=== PATIENT | female | born 1985 | race Caucasian/White ===

== ENCOUNTER 2017-03-28 01:40 | Inpatient (IN) | payer BC ==
[~2017-03-28] VITALS: Ht 157.5 cm; Wt 83.0 kg
[2017-03-28 03:18] VITALS: Ht 157.5 cm; Wt 83.0 kg
[2017-03-28 03:19] VITALS: BP 127/79; PULSE 65; RESP 20
[2017-03-28] MEDS ORDERED: IBUPROFEN 600 MG TAB PO PRN (03:30)
[2017-03-28] MEDS ORDERED: HYDROCODONE/APAP (5/325) TAB PO PRN ×2 (03:30→14:30)
[2017-03-28] MEDS ORDERED: CARBOPROST 250 MCG INJ IM PRN ×2 (03:30→14:30)
[2017-03-28] MEDS ORDERED: LIDOCAINE 1% (MPF) 30 ML INJ INJ PRN (03:30)
[2017-03-28] MEDS ORDERED: MISOPROSTOL 200 MCG TAB PR PRN ×2 (03:30→14:30)
[2017-03-28] MEDS ORDERED: BUTORPHANOL 2 MG INJ IV PRN ×2 (03:30)
[2017-03-28] MEDS ORDERED: OXYTOCIN 30 UNITS/LR 500 ML IV SCH ×3 (03:30)
[2017-03-28] MEDS ORDERED: OXYTOCIN 30 UNITS/LR 500 ML IV PRN ×2 (03:30→14:30)
[2017-03-28] MEDS ORDERED: METHYLERGONOVINE 0.2 MG INJ IM PRN ×2 (03:30→14:30)
[2017-03-28] MEDS: LACTATED RINGER'S 1,000 ML IV SCH ×3 (03:32→07:14)
--- NOTE | 2017-03-28 03:42 | HP ---
Date/Time of Note Date/Time of Note DATE: 03/28/17 TIME: 03:36 OB - History Hx of Present Free Text/Dictation 31 Year-old with SIUP at 38 6/7 wks presents with a chief complaint of ucs. She has been receiving her care with Dr. Wharton. She states good movement. She denies nausea, vomiting, shortness of breath, chest pain, and abdominal pain between contractions, headache, visual changes, vaginal bleeding or LOF. Chief Complaint: ucs Estimated Due Date: Apr 05, 2017 : 2 Para: 0 Spontaneous : 1 Therapeutic : 0 Care: Good Care Ultrasounds: Normal mid trimester US Medical Complications: None Past Family/Social History * Past Medical, Surgical, Family and Obstetric Histories reviewed from chart. Blood Type: O+ Rubella: immune RPR/VDRL: Negative GBS Status: Negative HBsAG: Negative OB Admission Exam Vital Signs Vital Signs Vital Signs Date Time Temp Pulse Resp B/P Pulse Ox O2 Delivery O2 Flow Rate FiO2 03/28/17 03:19 97.8 65 20 127/79 Room Air Physical Exam HEENT: WNL Heart: Rhythm Normal Lungs: Clear Abdomen: WNL Extremities: Normal Cervical Dilatation: 2cm Effacement: 50% Station: -3 Membranes: Ruptured Amniotic Fluid: Clear Heart Rate: 140's Accelerations: Accelerations Present Decelerations: No Decelerations Varibility: Moderate Contractions on Admission: < 5 Minutes Apart Date/Time Contractions Began: 1999 on 03/27/17 Intensity: Moderate OB Assessment/Plan Other plan: 31 Year-old with SIUP at 38 6/7 wks with SROM. She initially presents with ucs, however she had SROM during triage observation - FHR: No sign of metabolic acidosis- Category I - Continuous EFM, toco - CBC, blood type and screen - Analgesia options with R/B/A discussed in detail with patient - Epidural per patient request - Please see the orders 2) O+/Rubella: Immune/GBS negative Admission, procedures, expectations, risks and possible complications have been discussed in detail with the patient. Risk of vaginal delivery including but not limited to bleeding, infection, cervical laceration, placental retention, injury to fetus, blood transfusion, blood transfusion related infection, risk of anesthesia, adhesion, cervical laceration, episiotomy/laceration, possible delivery with risk of bleeding, infection, injury to other organs ( bowel, bladder, ureter, vessels, nerves), injury to fetus, blood transfusion, blood transfusion related infection, risk of anesthesia, scar and hernia formation, needs for future , removal of uterus or any other indicated surgery discussed with the patient. She expressed understanding and repeats the risks. All of her questions were answered; all appropriate consents will be signed. PHYSICIAN'S VERIFICATION OF INFORMED CONSENT: Vaginal delivery, possible forceps, vacuum and delivery The patient was counseled regarding the procedure, its indications, risks, potential complications and alternatives and any questions were answered. Consent was obtained. PLANNED PROCEDURE/TREATMENT: Vaginal delivery with possible vacuum/forceps delivery episiotomy, repair of laceration possible delivery PHYSICIAN'S VERIFICATION OF INFORMED CONSENT FOR BLOOD TRANSFUSION. There is a reasonable possibility that blood transfusion will be necessary as a result of the patient's procedure. I have discussed the following with the patient/patient's legal home furnishings sales representative: An explanation of the benefits and risks of the transfusion of blood or blood products and the possible alternatives. Al questions have been answered to the patient's/patients legal representatives satisfaction. INFORMED CONSENT: The patient has been informed of: - The nature of the proposed care, treatment, services, medications, interventions or procedures. - Potential benefits, risks or side effects, including potential problems related to recuperation. - The likelihood of achieving care treatment and service goals. - Reasonable alternatives to the proposed care, treatment and service. - The relevant risks, benefits and side effects related to alternatives, including the possible results of not receiving care, treatment and services. - When indicated, any limitations on the confidentiality of information learned from or about the patient. - If appropriate, the risks, benefits and alternatives of the drugs to be used for sedation/analgesia including moderate sedation. - If appropriate, patient has been provided information on the risks, benefits and alternatives to the transfusion of blood and/or blood products. ESTRELLA DE PAZ Mar 28, 2017 03:42
[2017-03-28 03:55] LABS: INR 0.86; PARTIAL THROMBOPLASTIN TIME 22.5 Sec (25.0-35.0); PROTIME 11.8 Sec (11.9-14.9); PT RATIO 0.9
[2017-03-28 04:09] LABS: BASOPHILS % 0.3 % (0.0-2.0); EOSINOPHILS % 0.3 % (0.0-7.0); HEMATOCRIT 39.9 % (37.0-47.0); HEMOGLOBIN 14.9 g/dl (12.0-16.0); LYMPHOCYTES # 1.7 10^3/ul (0.8-2.9); LYMPHOCYTES % 13.3 % (15.0-51.0); MEAN CORPUSCULAR HGB CONC 37.3 g/dl (32.0-37.0); MEAN CORPUSCULAR VOLUME 85.8 fl (82.0-101.0); MEAN PLATELET VOLUME 12.7 fl (7.4-10.4); MONOCYTE # 0.8 10^3/ul (0.3-0.9); MONOCYTES % 6.1 % (0.0-11.0); NEUTROPHIL # 10.4 10^3/ul (1.6-7.5); NEUTROPHILS % 79.6 % (39.0-77.0); PLATELET COUNT 172 10^3/UL (140-415); RED BLOOD COUNT 4.65 10^6/ul (4.20-5.40); RED CELL DISTRIBUTION WIDTH 13.7 % (11.5-14.5)
--- NOTE | 2017-03-28 04:13 | RADRPT ---
PROCEDURE: Obstetrical ultrasound, limited. CLINICAL INDICATION: Pelvic pain. TECHNIQUE: Multiple sonographic images of the pelvis were obtained using transabdominal technique . Images were obtained with lopez scale and color Doppler. The images were reviewed on a PACS works tation. COMPARISON: No prior studies are available for comparison. FINDINGS: There is a single living intrauterine gestation with the fetus in a vertex presentation. hear t tones are identified. The placenta is anterior in location, grade 2. IMPRESSION: Single viable intrauterine gestation. Cephalic presentation. .Jr Maldonado MD, Date Time Electronically viewed and signed by .Jr Maldonado MD, MD on 03/28/2017 04:12 .T/
[2017-03-28] MEDS ORDERED: FENTAnyl 2MCG/ML-ROPIV 0.2% 100 ML ONE (04:31)
[2017-03-28] MEDS ORDERED: DEXTROSE 5%-LR 1,000 ML IV SCH (08:30)
--- NOTE | 2017-03-28 11:25 | LDN ---
Date/Time of Note Date/Time of Note DATE: 03/28/17 TIME: 11:22 Delivery Summary Weeks of Gestation 38 weeks and 6 days Placenta Delivered: Spontaneously Meconium: none Episiotomy: No Perineal laceration: 1 Laceration repair: Second degree laceration repaired with 3-0 Vicryl and 3-0 chromic Anesthesia type: Epidural Estimated blood loss: 300 Sponge & Needle done & correct: Yes All needle counts correct: Yes Any foreign bodies felt in the: No Problems: Infant Delivery Information Sex Infant Sex: female Apgars 1 Minute: 9 5 Minute: 9 Suctioning Nose & mouth suctioned at anna: Yes Delee suction performed: Yes Umbilical Cord Umbilical cord with: 3 Vessels Cord presentations: nuchal cord Nuchal cord present X: 1 Cord Blood was obtained: Yes Mother & Baby Disposition Disposition Mom & Baby to Maternity; Good: Yes STACEY RAYA MD Mar 28, 2017 11:25
[2017-03-28 12:40] VITALS: BP 130/75; PULSE 71; RESP 18
[2017-03-28] MEDS ORDERED: BENZOCAINE 20% 56 ML SPRAY TOP PRN (14:30)
[2017-03-28] MEDS ORDERED: DIBUCAINE 1% 30 GM OINT PR PRN (14:30)
[2017-03-28] MEDS ORDERED: ACETAMINOPHEN 325 MG TAB PO PRN (14:30)
[2017-03-28] MEDS ORDERED: WITCH HAZEL/GLYCERIN PAD PR PRN (14:30)
[2017-03-28] MEDS: LACTATED RINGER'S 1,000 ML IV* SCH ×2 (15:40→22:23)
[2017-03-28 16:10] VITALS: BP 126/79; PULSE 73; RESP 19
[2017-03-28] MEDS: IBUPROFEN 600 MG TAB PO SCH (18:28)
[2017-03-28 19:55] VITALS: BP 131/82; PULSE 69; RESP 19
[2017-03-28] MEDS: SENNA/DOCUSATE NA (8.6MG/50MG) TAB PO SCH (21:46)
[2017-03-29] VITALS: BP 129/79; PULSE 72; RESP 19
[2017-03-29 04:10] VITALS: BP 103/69; PULSE 67; RESP 18
[2017-03-29] MEDS: IBUPROFEN 600 MG TAB PO SCH ×5 (05:41→23:30)
[2017-03-29] MEDS: LACTATED RINGER'S 1,000 ML IV* SCH (06:23)
[2017-03-29 07:55] VITALS: BP 125/78; PULSE 66; RESP 17
[2017-03-29] MEDS: SENNA/DOCUSATE NA (8.6MG/50MG) TAB PO SCH ×2 (09:00→20:39)
--- NOTE | 2017-03-29 10:25 | QN ---
Documentation Comment Post normal vaginal delivery day 1 Afebrile vital signs are stable , Abdomen soft, uterus firm, lochia normal, extremities normal WISAM AYERS MD Mar 29, 2017 10:25
[2017-03-29 10:48] LABS: BASOPHILS % 0.2 % (0.0-2.0); EOSINOPHILS # 0.1 10^3/ul (0.0-0.5); EOSINOPHILS % 0.4 % (0.0-7.0); HEMATOCRIT 34.3 % (37.0-47.0); HEMOGLOBIN 12.3 g/dl (12.0-16.0); LYMPHOCYTES # 1.6 10^3/ul (0.8-2.9); MEAN CORPUSCULAR HEMOGLOBIN 31.1 pg (29.0-33.0); MEAN CORPUSCULAR HGB CONC 35.9 g/dl (32.0-37.0); MEAN CORPUSCULAR VOLUME 86.8 fl (82.0-101.0); MEAN PLATELET VOLUME 12.7 fl (7.4-10.4); MONOCYTE # 0.6 10^3/ul (0.3-0.9); MONOCYTES % 4.8 % (0.0-11.0); NEUTROPHIL # 10.6 10^3/ul (1.6-7.5); NEUTROPHILS % 82.1 % (39.0-77.0); PLATELET COUNT 139 10^3/UL (140-415); RED BLOOD COUNT 3.95 10^6/ul (4.20-5.40); RED CELL DISTRIBUTION WIDTH 13.9 % (11.5-14.5); WHITE BLOOD COUNT 12.9 10^3/ul (4.8-10.8)
[2017-03-29 15:45] VITALS: BP 130/73; PULSE 67; RESP 16
[2017-03-29 19:55] VITALS: BP 128/71; PULSE 68; RESP 19
[2017-03-30 03:40] VITALS: BP 110/62; PULSE 69; RESP 19
[2017-03-30] MEDS: IBUPROFEN 600 MG TAB PO SCH ×3 (05:37→17:42)
[2017-03-30 08:15] VITALS: BP 135/85; PULSE 67; RESP 18
[2017-03-30] MEDS: SENNA/DOCUSATE NA (8.6MG/50MG) TAB PO SCH (08:52)
[2017-03-30] MEDS ORDERED: INFLUENZA VIRUS VACCINE 0.5 ML (DISPENSING) IM* ONE (09:00)
[2017-03-30] MEDS ORDERED: DIPHTH/TET/ACEL PERTUSS (ADULT) 0.5 ML VIAL IM* ONE (09:00)
--- NOTE | 2017-03-30 12:15 | PD.PPDC ---
PHOTOGRAPHER ASSISTANT Discharge Instruction Condition Patient Condition: Good Diet Diet: Resume Regular Diet Activity/Restrictions Activity: Normal Activity May Shower Restrictions: No Exercising No Lifting No Driving No Sexual Activity Nothing in the Vagina No Mary Esther No Tampons, douche Follow-up Follow-up with Physician: 2, Week/Weeks Provider Information: instruction given recommended to make appointment to be seen at the clinic in 2 weeks Return to clinic for [facility]FFER Instructions: Fever greater than 101 Chills Worsening abdominal pain Excessive Vaginal Bleeding More than 2 pads per hour Unable to tolerate diet OB Instructions: Breast Tenderness Depression Blurried Vision Headache WISAM AYERS MD Mar 30, 2017 12:15
--- NOTE | 2017-03-30 12:18 | DS ---
Date/Time of Note Date/Time of Note DATE: 03/30/17 TIME: 12:16 Discharge Summary Admission/Discharge Info Admit Date/Time Mar 28, 2017 at 03:00 Discharge Date/Time March 30, 2017 at 1210 Discharge Diagnosis Post normal vaginal delivery day 2 Patient Condition: Good Procedures Normal vaginal delivery Hx of Present Illness Term admitted for delivery Hospital Course Satisfactory uneventful Follow-up Plan instructions given recommended to make appointment to be seen at the clinic in 2 weeks Primary Care Provider Care Physician No Primary Time spent on discharge: < 30 minutes WISAM AYERS MD Mar 30, 2017 12:18
[2017-03-30 16:00] VITALS: BP 125/78; PULSE 65; RESP 18
[2017-03-31] MEDS ORDERED: INFLUENZA VIRUS VACCINE 0.5 ML (DISPENSING) IM* ONE (09:00)
== END 2017-03-30 18:45 | disposition home or self-care (01) | DRG 775 ==
LOC: L-D 01:40 → OBT 01:40 → L-D 03:00 → OBT 03:00 → PP1 12:30
PROVIDERS: ADMIT Obstetrics & Gynecology; ATTEND Obstetrics & Gynecology
PROC: 10E0XZZ Delivery of Products of Conception, External Approach (ICD-10-PCS; principal; 2017-03-28)
PROC: 0KQM0ZZ Repair Perineum Muscle, Open Approach (ICD-10-PCS; 2017-03-28)
PROC: 3E0234Z Introduction of Serum, Toxoid and Vaccine into Muscle, Percutaneous Approach (ICD-10-PCS; 2017-03-30)
DX: O70.1 Second degree perineal laceration during delivery (principal); Z37.0 Single live birth; Z23 Encounter for immunization; Z3A.38 38 weeks gestation of pregnancy
CPT/HCPCS: 62319; 76815; 85025; 85610; 85730; 86592; 86900; 86901; 87340; 90686; 90715; 99464; G0463; J2590; J3010; J7120; J7121